=== PATIENT | male | born 1945 | race African-American/Black ===

== ENCOUNTER → 2016-09-14 | Outpatient (CLI) | payer MEDICARE | END | disposition home or self-care (01) | LOC: RAD 16:33 | PROVIDERS: ATTEND Family Medicine | DX: R07.9 Chest pain, unspecified (principal) | CPT/HCPCS: 71020 ==

== ENCOUNTER 2016-09-15 08:24 | Emergency (ER) | payer MEDICARE ==
[~2016-09-15] VITALS: Ht 177.8 cm; Wt 84.0 kg
[2016-09-15 09:23] LABS: BASOPHILS % 0.8 % (0.0-2.0); EOSINOPHILS % 2.6 % (0.0-5.0); HEMATOCRIT. 40.6 % (42.0-52.0); HEMOGLOBIN. 13.4 g/dL (14.0-18.0); LYMPHOCYTES % 25.7 % (20.0-50.0); MEAN CORPUSCULAR HEMOGLOBIN 30.1 pg (28.0-32.0); MEAN CORPUSCULAR HGB CONC 33.1 g/dL (31.0-37.0); MEAN PLATELET VOLUME 8.7 fl (7.4-10.4); NEUTROPHILS % 62.9 % (40.0-76.0); PLATELET 152 x1000/uL (130-400); RED BLOOD CELL COUNT 4.46 mill/uL (4.7-6.1); RED CELL DISTRIBUTION WIDTH 13.6 % (11.6-14.6); WHITE BLOOD COUNT 4.2 x1000/uL (4.5-11.0)
[2016-09-15 09:30] LABS: PROTHROMBIN TIME 10.7 sec
[2016-09-15 09:36] LABS: ANION GAP 12; CALCIUM 8.9 mg/dL (8.5-10.1); CARBON DIOXIDE 27 mEq/L (21-32); CHLORIDE 106 mEq/L (98-107); INDEX HEMOLYSI 1 (1-3); INDEX ICTERIC 1 (1-4); INDEX LIPEMIC 1 (1-3); UREA NITROGEN BLOOD 22 mg/dL (7-21); eGFR > 60 mL/min (>60)
[2016-09-15 09:39] LABS: NT PRO B-TYPE NATRIURETIC PEP 8 pg/mL (5-125); TROPONIN I < 0.02 ng/mL (0.00-0.04)
[2016-09-15 10:45] VITALS: BP 131/71
== END 2016-09-15 11:24 | disposition home or self-care (01) ==
LOC: ER 08:50
DX: R07.89 Other chest pain (principal)
CPT/HCPCS: 36415; 71010; 80048; 83880; 84484; 85025; 85610; 93005; 99285

== ENCOUNTER 2017-05-09 12:58 | Emergency (ER) | payer MEDICARE ==
[~2017-05-09] VITALS: Ht 177.8 cm; Wt 79.0 kg
[2017-05-09] MEDS ORDERED: IBUPROFEN 600MG TABLET PO ONE (15:30)
[2017-05-09 15:37] VITALS: BP 116/68
== END 2017-05-09 15:38 | disposition home or self-care (01) ==
LOC: ER 13:14
DX: M54.32 Sciatica, left side (principal)
CPT/HCPCS: 99282

== ENCOUNTER → 2018-12-29 | Outpatient (CLI) | payer MEDICARE | END | disposition home or self-care (01) | LOC: LAB 14:01 | PROVIDERS: ATTEND Family Medicine | DX: R07.89 Other chest pain (principal) | CPT/HCPCS: 71046 ==

== ENCOUNTER → 2019-01-03 | Outpatient (CLI) | payer MEDICARE | END | disposition home or self-care (01) | LOC: CT 07:30 | PROVIDERS: ATTEND Family Medicine | DX: R51 Headache (principal) ==